=== PATIENT | male | born 2005 | race Caucasian/White ===

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

== ENCOUNTER 2024-01-17 10:14 | Outpatient (CLI) | payer BC, SELFPAY ==
--- NOTE | 2024-01-17 10:20 | XR_ITS ---
FINAL REPORT CLINICAL HISTORY: PAIN IN RT KNEE FINDINGS: Three views of the left knee reveal no evidence of fracture or dislocation. The bony alignment is normal. The joint spaces are preserved. There is no evidence of joint effusion. No localized soft tissue abnormality is seen. IMPRESSION: No acute abnormality identified. Reviewed, Interpreted and Dictated by Marv Hahn III, MD Transcribed by Chari Ricketts Authenticated and [facility]
== END 2024-01-17 23:59 | disposition home or self-care (01) ==
LOC: RAD 10:15
PROVIDERS: PCP Family Medicine; Visit Provider Family Medicine
DX: M25.561 Pain in right knee (principal)
CPT/HCPCS: 73562

== ENCOUNTER 2024-03-20 20:39 | Emergency (ER) | payer BC, SELFPAY ==
[2024-03-20 20:49] VITALS: BP 158/95; PULSE 96; RESP 18; TEMP 36.8; O2SAT 99; BMI 30.7
--- NOTE | 2024-03-20 21:16 | XR_ITS ---
PROCEDURE INFORMATION: Exam: XR Left Foot Exam date and time: 03/20/2024 10:12 PM Age: 18 years old Clinical indication: Injury or trauma; Other: Machine fell on lower leg; Crushing; Foot; Left TECHNIQUE: Imaging protocol: Radiologic exam of the left foot. Views: 3 or more views. COMPARISON: CR Ankle L 03/20/2024 10:10 PM FINDINGS: Bones/joints: Multiple views were obtained. The osseous structures appear intact with no evidence of acute fracture, dislocation, or malalignment. Joint spaces are preserved. No abnormal bone density or destructive lesions are noted. Soft tissues: Soft tissue swelling is observed, and further clinical correlation is advised. IMPRESSION: At the time of imaging, the skeletal radiograph demonstrates no acute osseous abnormalities but does show soft tissue swelling.
--- NOTE | 2024-03-20 21:16 | XR_ITS ---
PROCEDURE INFORMATION: Exam: XR Right Forearm Exam date and time: 03/20/2024 10:18 PM Age: 18 years old Clinical indication: Injury or trauma; Other: Machine fell on right arm; Crushing; Arm, lower; Additional info: Fall TECHNIQUE: Imaging protocol: Radiologic exam of the right forearm. Views: 2 views. COMPARISON: CR XR WRIST RT MIN 3V 03/20/2024 10:16 PM FINDINGS: Bones/joints: The osseous structures appear intact with no evidence of acute fracture, dislocation, or malalignment. Joint spaces are preserved. No abnormal bone density or destructive lesions are noted. Soft tissues: Soft tissues appear unremarkable. IMPRESSION: At the time of imaging, there is no evidence for acute osseous abnormalities.
--- NOTE | 2024-03-20 21:16 | XR_ITS ---
PROCEDURE INFORMATION: Exam: XR Right Wrist Exam date and time: 03/20/2024 10:16 PM Age: 18 years old Clinical indication: Injury or trauma; Other: Machine fell on right arm; Crushing; Arm, lower; Additional info: Fall TECHNIQUE: Imaging protocol: Radiologic exam of the right wrist. Views: 3 or more views. COMPARISON: No relevant prior studies available. FINDINGS: Bones/joints: The osseous structures appear intact with no evidence of acute fracture, dislocation, or malalignment. Joint spaces are preserved. No abnormal bone density or destructive lesions are noted. Soft tissues: Soft tissues appear unremarkable. IMPRESSION: At the time of imaging, there is no evidence for acute osseous abnormalities.
--- NOTE | 2024-03-20 21:16 | XR_ITS ---
PROCEDURE INFORMATION: Exam: XR Right Elbow Exam date and time: 03/20/2024 10:18 PM Age: 18 years old Clinical indication: Injury or trauma; Other: Machine fell on right arm; Crushing; Arm, lower; Additional info: Fall TECHNIQUE: Imaging protocol: Radiologic exam of the right elbow. Views: 3 or more views. COMPARISON: CR XR FOREARM RT 2V 03/20/2024 10:18 PM FINDINGS: Bones/joints: The osseous structures appear intact with no evidence of acute fracture, dislocation, or malalignment. Joint spaces are preserved. No abnormal bone density or destructive lesions are noted. Soft tissues: Soft tissues appear unremarkable. IMPRESSION: At the time of imaging, there is no evidence for acute osseous abnormalities.
--- NOTE | 2024-03-20 21:16 | XR_ITS ---
PROCEDURE INFORMATION: Exam: XR Left Ankle Exam date and time: 03/20/2024 10:10 PM Age: 18 years old Clinical indication: Injury or trauma; Other: Machine fell on lower leg; Crushing; Ankle; Right TECHNIQUE: Imaging protocol: Radiologic exam of the left ankle. Views: 3 or more views. COMPARISON: No relevant prior studies available. FINDINGS: Bones/joints: The osseous structures appear intact with no evidence of acute fracture, dislocation, or malalignment. Joint spaces are preserved. No abnormal bone density or destructive lesions are noted. Soft tissues: Soft tissues appear unremarkable. IMPRESSION: At the time of imaging, there is no evidence for acute osseous abnormalities.
[2024-03-20] MEDS: KETOROLAC 30MG/ML VIAL 30 MG IM (21:25)
--- NOTE | 2024-03-20 21:32 | ED_ITS ---
Discharge Plan Disposition Patient Disposition: Home, Self-Care Prescriptions Prescriptions: New ketorolac 10 mg tablet 10 mg PO Q8H 5 Days Qty: 15 0RF No Action azithromycin 250 MG tablet 250 mg PO DIRECTED Qty: 6 0RF Rx Instructions: Take two (2) tablets on day #1, then one (1) tablet day #2 thru #5 methylprednisolone 4 MG tablet 4 mg PO DIRECTED Qty: 21 0RF Rx Instructions: Take as directed on package instructions fluticasone propionate 120 SPR/BOT bottle 1 spr NS DAILY Qty: 1 0RF Rx Instructions: each nostril daily Referrals Follow up/Referrals: Michel Dejesus MD [Primary Care Provider] - See instructions Activity Restrictions/Add. Instructions Additional Instructions/Restrictions: As we discussed please use ice and take the Toradol as directed. Please also visit your PCP and have repeat x-rays if swelling or pain worsens over time. Please feel free to return to the ED for any worsening symptoms. Clinical Impressions Clinical Impression: Fall, Acute ankle pain, Arm pain, right Print Language Print Language: Jordanian Discharge ED Provider: Eduar Gannon General Adult HPI <Christine Odom (ED), EMPLOYMENT CLERK - Last Filed: 03/20/24 23:04> General Chief complaint: PAIN Stated complaint: AO 03/20/24 1900 Left foot,right arm injury Time Seen by Provider: 03/20/24 20:48 Mode of Arrival: Wheelchair Source of Information: Patient Limitations: No Limitations Description of Symptoms (Recalled from ER Triage Doc. by RN): Pt reports to ED with cc of left foot and right forearm pain. Pt states equipment fell and struck his foot and arm. Upon assessment pt's left foot has an abrasion and swelling. Pt also has an abrasion to right forearm History of Present Illness HPI narrative: This is a 18-year-old male who presents to the ED for complaint of left foot and ankle pain as well as right forearm pain after a piece of equipment fell and hit his foot and he fell onto his right arm. He says it was a silo bag that had to be removed with a skid warehouse loader. Patient did hit his head but says he has no headache or neck pain. He denies any loss of consciousness. He is alert and oriented x 4. Related Data Previous Rx's ?Medication ?Instructions ?Recorded azithromycin 250 mg tablet 250 mg PO DIRECTED #6 tabs 09/26/20 fluticasone propionate 50 1 spr NS DAILY ##1 09/26/20 mcg/actuation nasal spray,suspension methylprednisolone 4 mg tablet 4 mg PO DIRECTED #21 tabs 09/26/20 ketorolac 10 mg tablet 10 mg PO Q8H 5 days #15 tabs 03/20/24 Allergies Allergy/AdvReac Type Severity Reaction Status Date / Time No Known Allergies Allergy Verified 09/26/20 17:01 PFSH <Christine Odom (ED), EMPLOYMENT CLERK - Last Filed: 03/20/24 23:04> REPLACED BY [facility] Disclaimer: The information contained in this section may have been updated after the patient was seen, as this information can be updated by other users. Social History Smoking Status: Never smoker alcohol intake: never current occupational status: other Travel in the last 8 weeks: None <Christine Odom (ED), EMPLOYMENT CLERK - Last Filed: 03/20/24 23:04> ROS Obtained: Yes Systems reviewed as appropriate & no additional complaints except as documented Physical Exam <Christine Odom (ED), EMPLOYMENT CLERK - Last Filed: 03/20/24 23:04> General General appearance: alert and in no apparent distress Head Head exam: normocephalic and normal inspection Eye Eye exam: Present normal appearance, PERRL and EOMI ENT ENT exam: Present normal exam, normal oropharynx and mucous membranes moist Neck Neck exam: Present normal inspection, full ROM and trachea midline Chest Chest inspection: Present normal inspection Respiratory Respiratory exam: Present normal lung sounds bilaterally Cardiovascular Cardiovascular exam: Present regular rate, normal rhythm, normal heart sounds, +S1 and +S2 Abdominal Exam Abdominal exam: Present soft and normal bowel sounds exam: Present deferred Extremities Exam Extremities exam: Present tenderness (right forearm, erythematous and tender, left foot and ankle erythematous and tender), normal capillary refill, edema and joint swelling Back Exam Back exam: Present normal inspection and full ROM Neurological Exam Neurological exam: Present alert, oriented X3 and normal gait Skin Skin exam: Present warm, dry, intact and erythema (to right forearm and left foot) Medical Decision Making <Christine Odom (ED), EMPLOYMENT CLERK - Last Filed: 03/20/24 23:04> Prasanth Inquiry Pt receiving controlled substance: No Vital Signs: 03/20/24 20:49 03/20/24 22:00 03/20/24 22:15 Temperature 98.3 F Temperature Source Oral Pulse Rate 78 90 Pulse Rate [Right Radial] 96 H Respiratory Rate 18 Blood Pressure 164/84 H 172/89 H Blood Pressure [Left Arm] 158/95 H Blood Pressure Mean 108 118 Blood Pressure Mean [Left Arm] 116 Blood Pressure Source Blood Pressure Source [Left Arm] Automatic Cuff Blood Pressure Position Blood Pressure Position [Left Arm] Sitting 02 Sat by Pulse Oximetry 99 98 Oxygen Delivery Method Room Air Room Air 03/20/24 22:45 03/20/24 23:01 03/20/24 23:14 Temperature 98 F Temperature Source Oral Pulse Rate 90 Pulse Rate [Right Radial] Respiratory Rate 16 Blood Pressure 171/77 H 163/89 H 163/89 H Blood Pressure [Left Arm] Blood Pressure Mean 108 98 Blood Pressure Mean [Left Arm] Blood Pressure Source Automatic Cuff Blood Pressure Source [Left Arm] Blood Pressure Position Sitting Blood Pressure Position [Left Arm] 02 Sat by Pulse Oximetry Oxygen Delivery Method Room Air Orders (Tests/Meds): ED MEDICATIONS Discontinued Medications Generic Name Dose Route Start Last Admin Trade Name Freq PRN Reason Stop Dose Admin Ketorolac Tromethamine 30 mg 03/20/24 21:18 03/20/24 21:25 Ketorolac 30mg/Ml Vial IM 03/20/24 21:19 30 mg ONCE ONE Administration ORDERS Category Date Time Status Ankle XR - Left minimum 3 Views [XR ankle LT min 3V] Exams 03/20/24 21:16 Completed Stat Elbow XR right minimum 3 views [XR elbow RT min 3V] Exams 03/20/24 21:16 Completed Stat Foot XR left minimum 3 views [XR foot LT min 3V] Stat Exams 03/20/24 21:16 Completed Forearm XR right 2 views [XR forearm RT 2V] Stat Exams 03/20/24 21:16 Completed Wrist XR right minimum 3 views [XR wrist RT min 3V] Exams 03/20/24 21:16 Completed Stat Medical Decision Narrative: Insert review patient is a 18-year-old male presenting to the emergency department for evaluation of a fall related to a piece of equipment falling on him. Patient is hemodynamically stable and nontoxic-appearing upon arrival, afebrile. Differential diagnosis includes right arm fracture versus abrasions, left ankle and foot fractures versus abrasions and sprains. Workup will be conducted with left foot and ankle imaging and right forearm and wrist imaging. Initial inventions include imaging to right arm and left ankle. Initial workup reviewed by me imaging and pain medication. [Imaging informally interpreted by me and unremarkable for fractures. [Formal imaging read remarkable for no acute fractures but soft tissue swelling is apparent and I discussed with patient the need for repeat evaluation. patient's pain is improved. Due to patient's soft tissue swelling we did discuss repeat x-rays in a few days when swelling disappears. We also discussed home care and he verbalized understanding. Will discharge patient with Toradol for home. <Eduar Gannon MD - Last Filed: 03/20/24 23:24> Vital Signs: 03/20/24 20:49 03/20/24 22:00 03/20/24 22:15 Temperature 98.3 F Temperature Source Oral Pulse Rate 78 90 Pulse Rate [Right Radial] 96 H Respiratory Rate 18 Blood Pressure 164/84 H 172/89 H Blood Pressure [Left Arm] 158/95 H Blood Pressure Mean 108 118 Blood Pressure Mean [Left Arm] 116 Blood Pressure Source Blood Pressure Source [Left Arm] Automatic Cuff Blood Pressure Position Blood Pressure Position [Left Arm] Sitting 02 Sat by Pulse Oximetry 99 98 Oxygen Delivery Method Room Air Room Air 03/20/24 22:45 03/20/24 23:01 03/20/24 23:14 Temperature 98 F Temperature Source Oral Pulse Rate 90 Pulse Rate [Right Radial] Respiratory Rate 16 Blood Pressure 171/77 H 163/89 H 163/89 H Blood Pressure [Left Arm] Blood Pressure Mean 108 98 Blood Pressure Mean [Left Arm] Blood Pressure Source Automatic Cuff Blood Pressure Source [Left Arm] Blood Pressure Position Sitting Blood Pressure Position [Left Arm] 02 Sat by Pulse Oximetry Oxygen Delivery Method Room Air Orders (Tests/Meds): ED MEDICATIONS Discontinued Medications Generic Name Dose Route Start Last Admin Trade Name Freq PRN Reason Stop Dose Admin Ketorolac Tromethamine 30 mg 03/20/24 21:18 03/20/24 21:25 Ketorolac 30mg/Ml Vial IM 03/20/24 21:19 30 mg ONCE ONE Administration ORDERS Category Date Time Status Ankle XR - Left minimum 3 Views [XR ankle LT min 3V] Exams 03/20/24 21:16 Completed Stat Elbow XR right minimum 3 views [XR elbow RT min 3V] Exams 03/20/24 21:16 Completed Stat Foot XR left minimum 3 views [XR foot LT min 3V] Stat Exams 03/20/24 21:16 Completed Forearm XR right 2 views [XR forearm RT 2V] Stat Exams 03/20/24 21:16 Completed Wrist XR right minimum 3 views [XR wrist RT min 3V] Exams 03/20/24 21:16 Completed Stat Medical Decision Narrative: Insert review patient is a 18-year-old [facility] related to a piece of equipment falling on him. Patient is hemodynamically stable and nontoxic-appearing upon arrival, afebrile. Differential diagnosis includes right arm fracture versus abrasions, left ankle and foot fractures versus abrasions and sprains. Workup will be conducted with left foot and ankle imaging and right forearm and wrist imaging. Initial inventions include imaging to right arm and left ankle. Initial workup reviewed by me imaging and pain medication. [Imaging informally interpreted by me and unremarkable for fractures. [Formal imaging read remarkable for no acute fractures but soft tissue swelling is apparent and I discussed with patient the need for repeat evaluation. patient's pain is improved. Due to patient's soft tissue swelling we did discuss repeat x-rays in a few days when swelling disappears. We also discussed home care and he verbalized understanding. Will discharge patient with Toradol for home. I was consulted by the SUZETTE, and we discussed the complexity of the problems being addressed.I approved the treatment and management plan for this patient?s care in the Emergency Department, thus performing a substantive portion of the medical decision making.Signed, Eduar Gannon MD Critical Care <Christine Odom (ED), EMPLOYMENT CLERK - Last Filed: 03/20/24 23:04> Critical Care Time Critical Care Time: No
--- NOTE | 2024-03-20 21:57 | PC.NURSE ---
CONTACTED rad re: update on when they were gonna do scans. Stated they were down the list and would be here shortly.
[2024-03-20 22:00] VITALS: BP 164/84; PULSE 78; O2SAT 98
[2024-03-20 22:15] VITALS: BP 172/89; PULSE 90
[2024-03-20 22:45] VITALS: BP 171/77
[2024-03-20 23:01] VITALS: BP 163/89
[2024-03-20 23:14] VITALS: BP 163/89; PULSE 90; RESP 16; TEMP 36.6; O2SAT 99
== END 2024-03-20 23:15 | disposition home or self-care (01) ==
PROVIDERS: Emergency Provider Emergency Medicine; PCP Family Medicine
DX: M79.631 Pain in right forearm (principal); M25.572 Pain in left ankle and joints of left foot; S90.812A Abrasion, left foot, initial encounter; W20.8XXA Other cause of strike by thrown, projected or falling object, initial encounter; Y92.9 Unspecified place or not applicable
CPT/HCPCS: 73080; 73090; 73110; 73610; 73630; 96372; 99285; J1885

== ENCOUNTER 2024-03-23 11:01 | Outpatient (CLI) | payer BC, SELFPAY ==
--- NOTE | 2024-03-23 | ECG_ITS ---
APPROVED REPORT Exam: Resting ECG HR:55 bpm ECG Measurements Heart Rate 55 AXES AK 149 P 43 QRSd 106 QRS 53 QT 358 T 42 QTc 346 Conclusion SINUS BRADYCARDIA WITH SINUS ARRHYTHMIA BORDERLINE ECG UNCONFIRMED REPORT Electronically signed by : Nuno Bryan MD 03/25/2024 08:26:23
--- NOTE | 2024-03-23 11:09 | XR_ITS ---
FINAL REPORT CLINICAL HISTORY: atypical chest pain cough x 2 days COMPARISON: None FINDINGS: Two views of the chest were obtained. The heart size and pulmonary vascularity are within normal limits. The mediastinum is normal. No acute pulmonary abnormality is identified. There is no pneumothorax. The bony thorax is intact. IMPRESSION: No active cardiopulmonary disease. Reviewed, Interpreted and Dictated by Marv Hahn III, MD Transcribed by Laura Livingston Authenticated and [facility]
== END 2024-03-23 23:59 | disposition home or self-care (01) ==
LOC: RAD 11:04
PROVIDERS: PCP Family Medicine; Visit Provider Nurse Practitioner Family
DX: R07.89 Other chest pain (principal)
CPT/HCPCS: 71046; 93005